=== PATIENT | male | born 1960 | race Asian ===

== ENCOUNTER → 2024-05-24 | Outpatient (CLI) | payer MEDICAID, SELFPAY ==
--- NOTE | 2024-05-24 10:44 | XR_ITS ---
Examination: Testicular sonography complete TECHNIQUE: Grayscale sonographic images testes, assessment arterial inflow venous outflow Doppler spectral analysis carful analysis Exam date and time: May 24, 2024 1053 hours INDICATIONS: Left testicular pain and swelling beginning 3 days ago. FINDINGS: Right testis 3.4 cm epididymis 1.8 cm 6 mm right epididymal cyst Arterial flow testicle. No testicular mass Left testis 3.5 cm epididymis 4.5 cm Arterial flow testicle. No testicular mass. Scrotal wall edema on the left Mild right moderate left hydrocele IMPRESSION: No testicular torsion or testicular mass Left epididymitis Significant scrotal wall thickening on the left Moderate left hydrocele
== END | disposition home or self-care (01) ==
LOC: CDIM 10:05
PROVIDERS: PCP Physician Assistant; Referring Provider Physician Assistant; Visit Provider Physician Assistant
DX: N45.1 Epididymitis (principal); N50.89 Other specified disorders of the male genital organs; N43.3 Hydrocele, unspecified
CPT/HCPCS: 76870